=== PATIENT | female | born 1995 | race Caucasian/White ===

== ENCOUNTER → 2018-03-25 | Outpatient (CLI) | payer BC ==
[~2018-03-25] MED LIST: GADOBUTROL 7.5 MMOL/7.5 ML (GADAVIST) VIAL IV ONE; HYDR50SY PO
--- NOTE | 2018-03-25 10:02 | Diagnostic Imaging Report ---
PROCEDURE: MR imaging cervical spine with and without contrast. TECHNIQUE: Multiplanar and multisequence MRI of the cervical spine was performed with and without contrast. INDICATION: Difficulty walking and bilateral hand numbness since January. No prior studies are available for comparison. Curvature and alignment of the cervical spine is normal. Vertebral body marrow signal is unremarkable. There is normal height and hydration to the cervical intervertebral discs. Normal homogeneous signal intensity throughout the cervical spinal cord is identified. Craniocervical junction is unremarkable. No abnormal enhancement is seen. No focal disc protrusion is identified. The central canal and neural foramina are patent at all levels. IMPRESSION: Unremarkable pre-and postcontrast MRI of the cervical spine. Dictated by: Dictated on workstation # [id number]
--- NOTE | 2018-03-25 10:07 | Diagnostic Imaging Report ---
INDICATION: Difficulty walking and bilateral hand numbness. Pre-and post intravenous contrast multiplanar multisequence imaging of the thoracic spine was performed. Curvature and alignment of the thoracic spine is normal. The vertebral body heights and marrow signal are normal. There is normal height and hydration to the thoracic discs. The thoracic cord demonstrates normal homogeneous signal intensity and normal morphology. No abnormal cord signal is detected. No focal disc protrusion is seen. No central canal or neural foraminal stenosis is seen. No abnormal enhancement following contrast administration is seen. IMPRESSION: Unremarkable pre-and postcontrast MRI of the thoracic spine. Dictated by: Dictated on workstation # [id number]
== END ==
LOC: RAD 07:56
PROVIDERS: ATTEND Physician Assistant
DX: R20.2 Paresthesia of skin (principal); M62.81 Muscle weakness (generalized); R26.2 Difficulty in walking, not elsewhere classified; R93.5 Abnormal findings on diagnostic imaging of other abdominal regions, including retroperitoneum
CPT/HCPCS: 72156; 72157

== ENCOUNTER → 2018-06-06 | Outpatient (CLI) | payer BC ==
[~2018-06-06] VITALS: Ht 152.4 cm; Wt 57.2 kg
[~2018-06-06] MED LIST changes: -GADOBUTROL 7.5 MMOL/7.5 ML (GADAVIST) VIAL IV ONE; +NS IV 1000 ML 1,000 ML IV ONE
[2018-06-06 16:15] VITALS: BP 121/79
[2018-06-06 16:19] LABS: BASOPHILS # (AUTO) 0.1 10^3/uL (0.0-0.1); BASOPHILS % (AUTO) 1 % (0-10); EOSINOPHILS # (AUTO) 0.2 10^3/uL (0.0-0.3); EOSINOPHILS % (AUTO) 4 % (0-10); HEMATOCRIT 40 % (35-52); HEMOGLOBIN 13.1 G/DL (11.5-16.0); LYMPHOCYTES # (AUTO) 1.3 X 10^3 (1.0-4.0); LYMPHOCYTES % (AUTO) 28 % (12-44); MEAN CORPUSCULAR HEMOGLOBIN 27 PG (25-34); MEAN CORPUSCULAR HGB CONC 33 G/DL (32-36); MEAN CORPUSCULAR VOLUME 82 FL (80-99); MEAN PLATELET VOLUME 11.8 FL (7.4-10.4); MONOCYTES # (AUTO) 0.3 X 10^3 (0.0-1.0); MONOCYTES % (AUTO) 7 % (0-12); NEUTROPHILS # (AUTO) 2.9 X 10^3 (1.8-7.8); NEUTROPHILS % (AUTO) 60 % (42-75); PLATELET COUNT 213 10^3/uL (130-400); RED BLOOD COUNT 4.87 10^6/uL (4.35-5.85); RED CELL DISTRIBUTION WIDTH 14.1 % (10.0-14.5); WHITE BLOOD COUNT 4.8 10^3/uL (4.3-11.0)
[2018-06-06 16:39] LABS: ALANINE AMINOTRANSFERASE 20 U/L (0-55); ALBUMIN 4.6 GM/DL (3.2-4.5); ALKALINE PHOSPHATASE 47 U/L (40-136); BILIRUBIN,TOTAL 0.4 MG/DL (0.1-1.0); BUN/CREATININE RATIO 9; CALCIUM 9.3 MG/DL (8.5-10.1); CARBON DIOXIDE 24 MMOL/L (21-32); CHLORIDE 103 MMOL/L (98-107); GFR ESTIMATED > 60; GLUCOSE 71 MG/DL (70-105); SODIUM 139 MMOL/L (135-145); TOTAL PROTEIN 7.2 GM/DL (6.4-8.2)
[2018-06-06 16:40] LABS: ERYTHROCYTE SEDIMENTATION RATE 1 MM/HR (0-20)
[2018-06-06 16:44] VITALS: BP 121/79
== END ==
LOC: SDC 15:06
PROVIDERS: ATTEND Internal Medicine
DX: R63.4 Abnormal weight loss (principal); E86.9 Volume depletion, unspecified; R53.81 Other malaise; R53.83 Other fatigue; L23.9 Allergic contact dermatitis, unspecified cause
CPT/HCPCS: 36415; 80053; 85025; 85652; 86141; 86308; 87430; 96365

== ENCOUNTER 2018-11-09 00:51 | Emergency (ER) | payer BC ==
[~2018-11-09] VITALS: Ht 154.9 cm; Wt 47.6 kg
[~2018-11-09 00:51] MED LIST changes: -NS IV 1000 ML 1,000 ML IV ONE
--- OUTSIDE RECORDS SUMMARY | 2018-11-09 00:57 | XMS REPORT | Continuity of Care Document ---
Author Author [facility] Organization [facility] Address Unknown Phone Unavailable Allergies Active Description Code Type Severity Reaction Onset Reported/Identified Relationship to Patient Clinical Status Yes NKDA N/A N/A Yes No Allergy Information Available [id number] Drug Allergy Unknown N/A 2015 Yes No Known Drug Allergies [id number] Drug Allergy Unknown N/A 03/25/2018 Medications Medication Packaging Start Date Stop Date Route Dosage Sig WELLBUTRIN XL ORAL 02/25/2018 ORAL 3030 daily Problems Date Dx Coded Attending Type Code Diagnosis Diagnosed By 08/05/2015 CHANNING PIERCE DO Ot F41.9 ANXIETY DISORDER, UNSPECIFIED 08/05/2015 CHANNING PIERCE DO Ot R00.2 PALPITATIONS 12/18/2015 DANNIE SON MD Ot F45.8 OTHER SOMATOFORM DISORDERS 12/18/2015 DANNIE SON MD Ot R13.10 DYSPHAGIA, UNSPECIFIED 02/19/2016 DEFFENBAUGH DO, DARIEN D Ot R07.9 CHEST PAIN, UNSPECIFIED 02/19/2016 DEFFENBAUGH DO, DARIEN D Ot R13.19 OTHER DYSPHAGIA 03/06/2016 DEFFENBAUGH DO, DARIEN D Ot R13.10 DYSPHAGIA, UNSPECIFIED 03/06/2016 DEFFENBAUGH DO, DARIEN D Ot R07.9 CHEST PAIN, UNSPECIFIED 03/06/2016 DEFFENBAUGH DO, DARIEN D Ot R13.19 OTHER DYSPHAGIA 03/25/2018 DANNIE SON MD Ot F45.8 OTHER SOMATOFORM DISORDERS 03/25/2018 DANNIE SON MD Ot R13.10 DYSPHAGIA, UNSPECIFIED 03/25/2018 DEFFENBAUGH DO, DARIEN D Ot R13.10 DYSPHAGIA, UNSPECIFIED 03/25/2018 DEFFENBAUGH DO, DARIEN D Ot R07.9 CHEST PAIN, UNSPECIFIED 03/25/2018 DEFFENBAUGH DO, DARIEN D Ot R13.19 OTHER DYSPHAGIA 03/28/2018 DEMETRIUS TORRES Ot M62.81 MUSCLE WEAKNESS (GENERALIZED) 03/28/2018 DEMETRIUS TORRES Ot R20.2 PARESTHESIA OF SKIN 03/28/2018 DEMETRIUS TORRES Ot R26.2 DIFFICULTY IN WALKING, NOT ELSEWHERE CLA 03/28/2018 DEMETRIUS TORRES Ot R93.5 ABN FINDINGS ON DX IMAGING OF ABD REGION 04/08/2018 DEMETRIUS TORRES Ot M62.81 MUSCLE WEAKNESS (GENERALIZED) 04/08/2018 DEMETRIUS TORRES Ot R20.2 PARESTHESIA OF SKIN 04/08/2018 DEMETRIUS TORRES Ot R26.2 DIFFICULTY IN WALKING, NOT ELSEWHERE CLA 04/08/2018 DEMETRIUS TORRES Ot R93.5 ABN FINDINGS ON DX IMAGING OF ABD REGION 05/19/2018 DANNIE SON MD Ot F45.8 OTHER SOMATOFORM DISORDERS 05/19/2018 DANNIE SON MD Ot R13.10 DYSPHAGIA, UNSPECIFIED 05/19/2018 DEFFENBAUGH DO, DARIEN D Ot R13.10 DYSPHAGIA, UNSPECIFIED 05/19/2018 DEFFENBAUGH DO, DARIEN D Ot R07.9 CHEST PAIN, UNSPECIFIED 05/19/2018 DEFFENBAUGH DO, DARIEN D Ot R13.19 OTHER DYSPHAGIA 05/19/2018 DEMETRIUS TORRES Ot M62.81 MUSCLE WEAKNESS (GENERALIZED) 05/19/2018 DEMETRIUS TORRES Ot R20.2 PARESTHESIA OF SKIN 05/19/2018 DEMETRIUS TORRES Ot R26.2 DIFFICULTY IN WALKING, NOT ELSEWHERE CLA 05/19/2018 DEMETRIUS TORRES Ot R93.5 ABN FINDINGS ON DX IMAGING OF ABD REGION 06/08/2018 PREMA ARREDONDO MD Ot E86.9 VOLUME DEPLETION, UNSPECIFIED 06/08/2018 PREMA ARREDONDO MD Ot L23.9 ALLERGIC CONTACT DERMATITIS, UNSPECIFIED 06/08/2018 PREMA ARREDONDO MD Ot R53.81 OTHER MALAISE 06/08/2018 PREMA ARREDONDO MD, Ot R53.83 OTHER FATIGUE 06/08/2018 PREMA ARREDONDO MD Ot R63.4 ABNORMAL WEIGHT LOSS Procedures There is no data. Results Test Result Range Streptococcus pyogenes antigen detection - 06/06/18 15:38 Streptococcus pyogenes antigen detection NEGATIVE NEGATIVE Bacterial throat culture - 06/06/18 15:38 Bacterial throat culture [facility] NR Complete blood count (CBC) with automated white blood cell (WBC) differential - 06/06/18 16:11 Blood leukocytes automated count (number/volume) 4.8 10*3/uL 4.3-11.0 Blood erythrocytes automated count (number/volume) 4.87 10*6/uL 4.35-5.85 Venous blood hemoglobin measurement (mass/volume) 13.1 g/dL 11.5-16.0 Blood hematocrit (volume fraction) 40 % 35-52 Automated erythrocyte mean corpuscular volume 82 [foz_us] 80-99 Automated erythrocyte mean corpuscular hemoglobin (mass per erythrocyte) 27 pg 25-34 Automated erythrocyte mean corpuscular hemoglobin concentration measurement ( mass/volume) 33 g/dL 32-36 Automated erythrocyte distribution width ratio 14.1 % 10.0-14.5 Automated blood platelet count (count/volume) 213 10*3/uL 130-400 Automated blood platelet mean volume measurement 11.8 [foz_us] 7.4-10.4 Automated blood neutrophils/100 leukocytes 60 % 42-75 Automated blood lymphocytes/100 leukocytes 28 % 12-44 Blood monocytes/100 leukocytes 7 % 0-12 Automated blood eosinophils/100 leukocytes 4 % 0-10 Automated blood basophils/100 leukocytes 1 % 0-10 Blood neutrophils automated count (number/volume) 2.9 10*3 1.8-7.8 Blood lymphocytes automated count (number/volume) 1.3 10*3 1.0-4.0 Blood monocytes automated count (number/volume) 0.3 10*3 0.0-1.0 Automated eosinophil count 0.2 10*3/uL 0.0-0.3 Automated blood basophil count (count/volume) 0.1 10*3/uL 0.0-0.1 Serum heterophile antibody titer - 06/06/18 16:11 Serum heterophile antibody titer NEGATIVE NEGATIVE Comprehensive metabolic panel - 06/06/18 16:11 Serum or plasma sodium measurement (moles/volume) 139 mmol/L 135-145 Serum or plasma potassium measurement (moles/volume) 4.0 mmol/L 3.6-5.0 Serum or plasma chloride measurement (moles/volume) 103 mmol/L 98-107 Carbon dioxide 24 mmol/L 21-32 Serum or plasma anion gap determination (moles/volume) 12 mmol/L 5-14 Serum or plasma urea nitrogen measurement (mass/volume) 7 mg/dL 7-18 Serum or plasma creatinine measurement (mass/volume) 0.80 mg/dL 0.60-1.30 Serum or plasma urea nitrogen/creatinine mass ratio 9 NRG Serum or plasma creatinine measurement with calculation of estimated glomerular filtration rate > NRG Serum or plasma glucose measurement (mass/volume) 71 mg/dL 70-105 Serum or plasma calcium measurement (mass/volume) 9.3 mg/dL 8.5-10.1 Serum or plasma total bilirubin measurement (mass/volume) 0.4 mg/dL 0.1-1.0 Serum or plasma alkaline phosphatase measurement (enzymatic activity/volume) 47 U/L 40-136 Serum or plasma aspartate aminotransferase measurement (enzymatic activity/ volume) 18 U/L 5-34 Serum or plasma alanine aminotransferase measurement (enzymatic activity/volume ) 20 U/L 0-55 Serum or plasma protein measurement (mass/volume) 7.2 g/dL 6.4-8.2 Serum or plasma albumin measurement (mass/volume) 4.6 g/dL 3.2-4.5 Erythrocyte sedimentation rate by westergren method - 06/06/18 16:11 Erythrocyte sedimentation rate by westergren method 1 mm 0-20 Serum or plasma C reactive protein measurement (mass/volume) - 06/06/18 16:11 Serum or plasma C reactive protein measurement (mass/volume) 0.02 mg /dL 0.00-0.50 Encounters ACCT No. Visit Date/Time Discharge Status Pt. Type Provider Facility Loc./Unit Complaint [id number] 06/06/2018 15:06:00 06/06/2018 23:59:59 CLS Outpatient PREMA ARREDONDO MD [facility] SDC WEIGHT LOSS,VOUME DEPLETH ,DERMETINS [id number] 03/25/2018 07:56:00 03/25/2018 23:59:59 CLS Outpatient DEMETRIUS TORRES [facility] RAD ABNORMAL MRI, PARATHESIS BUE/BLE, WEAKNESS OF EXT. [id number] 02/18/2016 09:37:00 02/18/2016 23:59:59 CLS Outpatient DARIEN MEYERS DO [facility] RAD R13.19 DYSPAGIA, R07.9 CHEST PAIN [id number] 02/12/2016 10:00:00 02/12/2016 23:59:59 CLS Outpatient DARIEN MEYERS DO [facility] LAB DYSPHAGIA [id number] 12/04/2015 08:51:00 12/04/2015 23:59:59 CLS Outpatient DANNIE SON MD [facility] RAD DYSPHAGIA,GLOBUS [id number] 08/05/2015 18:33:00 08/05/2015 20:29:00 DIS Emergency CHANNING PIERCE DO [facility] ER HEART RACING [id number] 03/25/2018 07:57:00 Document Registration [id number] 03/01/2018 17:25:39 03/01/2018 17:25:39 DIS Outpatient [facility]
--- OUTSIDE RECORDS SUMMARY | 2018-11-09 00:57 | XMS REPORT | Clinical Summary ---
Author Author [facility] Organization [facility] Address Unknown Phone Unavailable Care Team Providers Care Social Group Worker Name Role Phone PCP Unavailable Allergies Not on File Current Medications Not on file Active Problems Not on file Social History Tobacco Use Types Packs/Day Years Used Date Never Assessed Sex Assigned at Date Recorded Not on file Last Filed Vital Signs Not on file Plan of Treatment Not on file Results Not on filefrom Last 3 Months
--- NOTE | 2018-11-09 01:08 | ED EENT ---
History of Present Illness General Stated Complaint: ITCHY THROAT, TROUBLE SWALLOWING, TOOK EPI PEN Source: patient History of Present Illness Date Seen by Provider: Nov 09, 2018 Time Seen by Provider: 00:55 Initial Comments 23-year-old female presenting with complaints of allergic reaction. She felt like her throat was getting tight itchy with trouble swallowing. She states that this has happened to her several times in the past. She had tried some famotidine kqqs-yeo-eyxpkid as well as 10 mg of prednisone that she had from previous episodes. She also says that she's had similar symptoms sometimes with low blood sugar. She had checked bad at home as well. It hasn't varied anywhere from 75-150 when she checked it. She did take a banana to help bring her sugar up. However she continued to feel bad and have worsening symptoms with her throat so she finally decided it was an allergic reaction and took her epinephrine pen. She did EpiPen about 15 minutes prior to arriving in the emergency department. She states that it is helping with her symptoms. She reports having at least 4 episodes like this in the past and she is comfortable extensive allergy and immunology testing to try and determine the source of her symptoms but they have not found anything specific to trigger her allergy. Allergies and Home Medications Allergies Coded Allergies: No Known Drug Allergies (Unverified , 03/25/18) Home Medications Epinephrine 0.3 Mg/0.3 Ml Auto.injct, 0.3 MG IJ ONCE PRN for allergic reaction Prescribed by: JUANITA JETER on 11/09/18223 Hydroxyzine HCl 50 Mg/25 Ml Solution, 50 MG PO Q6H Prescribed by: CHANNING PIERCE on 08/05/152018 Prednisone 20 Mg Tab, 20 MG PO DAILY Prescribed by: JUANITA JETER on 11/09/18223 Patient Home Medication List Home Medication List Reviewed: Yes Review of Systems Review of Systems Constitutional: No fever; malaise Eyes: No Symptoms Reported Ears: No Symptoms Reported Nose: no symptoms reported Mouth: no symptoms reported Throat: swelling, other (sensation of itching and swelling in her throat) Respiratory: short of breath (due to the sensation of swelling and itching in her throat); No stridor, No wheezing Cardiovascular: no symptoms reported Gastrointestinal: no symptoms reported Musculoskeletal: no symptoms reported Skin: No pruritus, No rash Neurological: Anxiety Hematologic/Lymphatic: No Symptoms Reported Immunological/Allergic: see HPI Past Fkpumtx-Fimsev-Ctohbd Hx Past Med/Social Hx: Reviewed Nursing Past Med/Soc Hx Patient Social History Recent Foreign Travel: No Contact w/Someone Who Travel: No Seasonal Allergies Seasonal Allergies: Yes Past Medical History Surgeries: No Orthopedic Reproductive Disorders: No Physical Exam Vital Signs Vital Signs - First Documented 11/09/18 01:08 Temp 97.4 Pulse 104 Resp 16 B/P (MAP) 124/72 (89) Pulse Ox 98 O2 Delivery Room Air Height, Weight, BMI Height: 5'0.00" Weight: 126lbs. 0.0oz. 57.997141tc; BMI Method:Stated General Appearance: WD/WN, no apparent distress Eyes: bilateral eye PERRL, bilateral eye EOMI Nose: normal inspection Mouth/Throat: normal mouth inspection, pharynx normal; No excessive drooling, No pharynx swelling, No pharynx tenderness, No tongue swollen, No tonsillar exudate, No tonsillar swelling, No uvula swelling, No voice changes Neck: non-tender, full range of motion, supple, normal inspection Cardiovascular: normal peripheral pulses, regular rate, rhythm Respiratory: chest non-tender, lungs clear, normal breath sounds, no respiratory distress, no accessory muscle use; No rales, No rhonchi, No stridor , No wheezing Neurologic/Psychiatric: alert, oriented x 3 Skin: normal color, warm/dry; No rash Progress/Results/Core Measures Results/Orders Lab Results Laboratory Tests Test 11/09/18 01:32 Range/Units Glucometer 125 H 70-110 MG/DL My Orders Orders - JUANITA JETER MD Diphenhydramine Injection (Benadryl Inje (11/09/18 01:15) Dexamethasone Injection (Decadron Inject (11/09/18 01:15) Ondansetron Oral Dissolve Tab (Zofran (11/09/18 01:37) Accucheck Stat ONCE (11/09/18 01:39) Medications Given in ED Current Medications Medications Dose Ordered Sig/George Route Start Time Stop Time Status Last Admin Dose Admin Dexamethasone Sodium Phosphate 10 mg ONCE ONCE IM 11/09/18 01:15 11/09/18 01:16 DC 11/09/18 01:26 10 MG Diphenhydramine HCl 50 mg ONCE ONCE IM 11/09/18 01:15 11/09/18 01:16 DC 11/09/18 01:26 50 MG Vital Signs/I&O 11/09/18 01:08 Temp 97.4 Pulse 104 Resp 16 B/P (MAP) 124/72 (89) Pulse Ox 98 O2 Delivery Room Air Progress Progress Note #1: Time: 01:05 Progress Note Will give Benadryl 50 mg and dexamethasone 10 mg both IM. Patient states that she is a difficult IV stick so she did not want to go through an IV. We will monitor here in the emergency department for at least 30 minutes to an hour and see how she is doing. If she has worsening symptoms she may need repeated epinephrine dose and or an IV and if that is the case she may also need to be monitored overnight. If she improves and remains stable will plan on discharge to home with prescription for refill of EpiPen and follow up with clinic. Progress Note #2: Time: 02:05 Progress Note On recheck the patient reports she feels a little light headed from the medicines but does not feel like her throat is any worse. she still has some itching feeling and mild tightness feeling but is swallowing and breathing without difficulty and still has no stridor. Will plan on refill of her EpiPen and give her a few more minutes then anticipate discharge to home to allow her to rest and follow up in clinic. Progress Note #3: Time: 02:35 Progress Note On recheck she still feels a little tight in her throat but no stridor, wheezing on auscultation and no visible swelling on exam. will have pt go home and rest. Counseled on follow up and return precautions. Departure Impression Primary Impression: Allergic reaction Qualified Codes: T78.40XA - Allergy, unspecified, initial encounter Additional Impression: Sensation of swollen throat Disposition: HOME, SELF-CARE Condition: Stable Departure-Patient Inst. Decision time for Depature: 02:38 Referrals: DEMETRIUS ESPINAL (PCP) Primary Care Physician NO,LOCAL PHYSICIAN (Family) Primary Care Physician Patient Instructions: Epinephrine Autoinjectors Add. Discharge Instructions: Follow up with clinic for continued symptoms or more concerns Refill your EpiPen at the pharmacy so that you have one on hand in case you have recurrent symptoms. Continue steroids for the next few days to help the symptoms finish clearing up. Scripts Prednisone (Prednisone) 20 Mg Tab 20 MG PO DAILY for 3 Days, #3 TAB 0 Refills Prov: JUANITA JETER MD 11/09/18 Epinephrine (Epipen 2-Ben) 0.3 Mg/0.3 Ml Auto.injct 0.3 MG IJ ONCE PRN for allergic reaction, #1 PKG 0 Refills Prov: JUANITA JETER MD 11/09/18 JUANITA JETER MD Nov 09, 2018 01:08
[2018-11-09] MEDS ORDERED: diphenhydrAMINE 50 MG/ML INJ (BENADRYL) IM ONE (01:15)
[2018-11-09] MEDS ORDERED: DEXAMETHASONE 10 MG/ML (DECADRON) 1 ML VIAL IM ONE (01:15)
[2018-11-09] MEDS ORDERED: ONDANSETRON 4 MG (ZOFRAN) ORAL DISSOLVE TAB PO STA ×2 (01:37)
[2018-11-09] MEDS ORDERED: PRD20T PO (02:24)
[2018-11-09] MEDS ORDERED: EPIN0.3P3 IJ (02:24)
[2018-11-09 02:40] VITALS: BP 108/66
== END 2018-11-09 02:40 | disposition home or self-care (01) ==
LOC: EDUNIT# 00:51 → ER FS 00:53
DX: T78.40XA Allergy, unspecified, initial encounter (principal); R22.2 Localized swelling, mass and lump, trunk; Z79.52 Long term (current) use of systemic steroids
CPT/HCPCS: 82962; 96372

== ENCOUNTER → 2022-04-02 | Outpatient (CLI) | payer BC ==
[~2022-04-02] MED LIST changes: +EPIN0.3P3 IJ; +PRD20T PO
--- NOTE | 2022-04-02 17:29 | Diagnostic Imaging Report ---
PROCEDURE: US Non-ob pelvis comp/trans. TECHNIQUE: Multiple realtime grayscale images were obtained of the pelvis in various projections endovaginally. Transabdominal imaging was also performed. INDICATION: Pelvic pain. COMPARISON: None FINDINGS: Uterus is retroverted and measures 6.1 x 2.2 x 4.9 cm. No suspicious myometrial masses are identified. Note is made of bifurcation of the endometrial stripe. There is suggestion of indentation of the fundus of the uterus, as well. There appears to be a single cervix. Overall appearance suggests a bicornuate uterus. Septate uterus is also a consideration. Endometrial stripe on the right measures 6 mm and stripe on the left measures 4 mm. Visualized portions of the cervix are otherwise unremarkable. No adnexal masses or free fluid are seen. Ovaries have a normal sonographic appearance bilaterally. The right ovary measures 4 x 1.5 x 1.9 cm and the left ovary measures 4.1 x 1.2 x 1.9 cm. IMPRESSION: 1. 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 Septate uterus is also a consideration. 2. Otherwise, no acute abnormalities are seen. Dictated by: Dictated on workstation # [id number]
== END ==
LOC: RAD 14:44
PROVIDERS: ATTEND Obstetrics & Gynecology
DX: R10.2 Pelvic and perineal pain (principal)
CPT/HCPCS: 76830; 76856

== ENCOUNTER → 2023-03-17 | Outpatient (CLI) | payer BC ==
[~2023-03-17] MED LIST changes: +GADOTERATE 0.5 MMOL/ML (CLARISCAN) 15 ML VIAL IV ONE
--- NOTE | 2023-03-17 16:37 | Diagnostic Imaging Report ---
PROCEDURE: MRI pelvis with and without contrast. TECHNIQUE: Multiplanar, multisequence MRI of the pelvis was performed with and without contrast. INDICATION: Uterine anomaly. COMPARISON: Pelvic ultrasound from 04/02/2022. FINDINGS: Uterus is and has abnormal indented external surface with 2 endometrial cavities. There is no internal septation present. This morphology is compatible with a bicornuate uterus. Endometrium is normal thickness in both the common and separate moieties measuring no more than 3 mm. The junctional zone is not thickened. No myometrial mass to suggest fibroid. Ovaries are normal in appearance with subcentimeter follicles present. The left ureter measures 2.5 x 1.8 x 3.5 cm. The left ovary measures 3.0 x 2.0 x 2.2 cm. No free pelvic fluid. No concerning adnexal mass. No pathologic enhancement within the pelvis. Osseous structures are normal in appearance. No sacroiliitis. IMPRESSION: 1. 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 The separate uterine cavities are short and only located in the region of the fundus. 2. No endometrial thickening. Dictated by: Dictated on workstation # [id number]
== END ==
LOC: RAD 13:37
PROVIDERS: ATTEND Obstetrics & Gynecology
DX: Q51.3 Bicornate uterus (principal); Q51.9 Congenital malformation of uterus and cervix, unspecified
CPT/HCPCS: 72197